=== PATIENT | male | born 1990 ===

== ENCOUNTER 2024-11-27 17:25 | Emergency (ER) | payer SELFPAY ==
[~2024-11-27] VITALS: Ht 177.8 cm; Wt 72.7 kg
[2024-11-27 19:18] VITALS: TEMP 97.7
[2024-11-27 20:00] VITALS: BP 115/81; PULSE 81; RESP 17; O2SAT 100
[2024-11-27 20:20] LABS: COVID AG,FIA SOURCE NASAL SWAB
[2024-11-27 20:47] LABS: SARS-COV2 (COVID) ANTIGEN,FIA Negative (Negative)
== END 2024-11-27 21:23 | disposition home or self-care (01) ==
LOC: EMS 17:25
DX: F25.9 Schizoaffective disorder, unspecified (principal); F15.10 Other stimulant abuse, uncomplicated; Z20.822 Contact with and (suspected) exposure to COVID-19
CPT/HCPCS: 99285; Z7502; Z7610